=== PATIENT | male | born 1995 | race Hispanic/Latino ===

== ENCOUNTER 2016-07-27 11:55 | Emergency (ER) | payer SELFPAY ==
[2016-07-27] MEDS ORDERED: KETOROLAC TROMETHAMINE 60 MG/2 ML VIAL IM ONE ×2 (12:45→13:33)
[2016-07-27] MEDS ORDERED: ONDANSETRON 4 MG TAB.RAPDIS PO ONE (12:45)
[2016-07-27 13:30] LABS: Urine Bilirubin 1 mg/dl (NEGATIVE); Urine Blood Negative /ul (NEGATIVE); Urine Ketone 15 mg/dL (NEGATIVE); Urine Nitrite Negative (NEGATIVE); Urine Protein 15 mg/dL (NEGATIVE); Urine Specific Gravity >=1.030 SP.GR. (1.005-1.030); Urine Urobilinogen Normal (NORMAL)
[2016-07-27] MEDS ORDERED: NORMAL SALINE 1,000 ML IV ONE (13:32)
[2016-07-27 13:33] LABS: Urine Appearance Slightly Cloudy; Urine Bacteria 1+; Urine Color Yellow; Urine Mucus Many - 3+; Urine RBC 0-5 /hpf (0-5); Urine WBC TRACE /hpf (0-5)
[2016-07-27] MEDS ORDERED: ONDANSETRON 4 MG TAB.RAPDIS ONE ×2 (13:33→13:37)
[2016-07-27 13:52] LABS: Cocaine Ur Negative (NEGATIVE); Urine Barbiturate Negative (NEGATIVE); Urine Opiates Negative (NEGATIVE); Urine PCP Negative (NEGATIVE)
[2016-07-27 13:56] LABS: Urine Benzodiazepines Positive (NEGATIVE); Urine THC Positive (NEGATIVE)
[2016-07-27 13:56] LABS: Hematocrit 44.8 % (42.0-52.0); Hemoglobin 15.6 gm/dL (13.5-18.0); Mean Cell Volume 83.6 fl (78-100); Mean Corpuscular Hemoglobin 29.1 pg (27-31); Mean Corpuscular Hgb Conc 34.8 g/dl (32-36); Mean Platelet Volume 8.9 fl (6.0-9.5); Neutrophil # 8.2 K/mm3 (1.3-6.0); Neutrophil % 69.8 % (42-75.0); Platelet Count 397 K/mm3 (150-450); Red Blood Count 5.36 M/mm3 (4.7-6.0); Red Cell Distribution Width 12.1 % (11.5-14.0); White Blood Count 11.7 K/mm3 (4.0-10.5)
--- NOTE | 2016-07-27 13:59 | ERNOTE ---
Headache ER HPI - Narrative Date of Service: 07/27/16 - General Presenting Symptoms: headache, "migraine" Time Seen by Provider: 07/27/16 12:43 Source: patient Exam Limitations: no limitations - Immun/Allergies/Home Medications Immunizations: IMMUNIZATION HX Immunizations Up to Date Yes History of Influenza Vaccine Yes Hx Pneumococcal Vaccination Yes Allergies/Adverse Reactions: Allergies Penicillins Allergy (Verified 07/27/16 12:12) Home Medications: HOME MEDICATIONS NK [No Home Medication] 02/24/16 [Last Taken Unknown] - Pain Pain Score: 6 - History of Present Illness Narrative: 21-year-old male presents to the emergency room for headache at the base of the back of his head and in the front of his eyes and low back pain. Patient states that normally he takes ibuprofen says that he has not been able to help him at this time. He states he has had a headache for 2 days Date (Duration): 07/27/16 Timing of Headache: gradual Context Headache: Present: new onset. Absent: tick bite, sick contact, meningitis exposure, recent head injury < 24 hrs ago Quality: Present: achy Headache frequency: Present: no recent headache Modifying Factors - (Improves): Reports: rest Modifying Factors - (Worsens): Reports: movement, exposure to light Associated Symptoms: Reports: nausea, vomiting, neck pain/stiffness. Denies: fever/chills, sweating, nasal congestion, nasal drainage, facial pain, fatigue, numbness/tingling, vision changes, confusion, light-headedness, dizziness, loss of consciousness, seizures, speech problems Exacerbated by:: Reports: light, noise Review of Systems - Review of Systems Constitutional: Present: See HPI EYE: Present: see HPI ENT: Present: no symptoms reported Respiratory: Present: no symptoms reported Cardiology: Present: no symptoms reported Gastrointestinal/Abdominal: Present: no symptoms reported Genitourinary: Present: no symptoms reported Musculoskeletal: Present: See HPI, muscle stiffness, neck pain Skin: Present: no symptoms reported Neurological: Present: See HPI Endocrine: Present: no symptoms reported Hematologic/Lymphatic: Present: no symptoms reported Psych: Present: no symptoms reported - Narrative Narrative: patient has a history of self harm - Patient's Past Medical History Patient History - Medical: Alcohol Abuse, Headache, Kidney stone Patient History - Cardiac/Respiratory: No pertinent hx Patient History - Cancer: No Hx of Cancer Patient History - Surgical Procedures: Other Patient History - Other: None - Social History Living Situations: home Abuse History: Hx of Substance Use, Hx -Substance Use Tx Psych History: Psychiatric Hx, Hx of Suicide Attempt Smoking Status: Current every day smoker Alcohol Use: none Drug Use: none - Immunizations Immunizations Up to Date: Yes Hx Pneumococcal Vaccination: Yes History of Influenza Vaccine: Yes Physical Exam - Physical Exam Narrative: patient has pain to his occipital area with some tenderness when he puts his chin to his chest. patient is able to move head side to side and ear to shoulder bilaterally with out pain or resistance. patient mucous membranes are dry. left submandibular lymphnode felt during palpation. It is painless. throat is not red or swollen. General Appearance: Present: wd/wn, alert, no apparent distress Eye Exam: Normal inspection: bilateral, Photophobia: bilateral Ears, Nose, Throat: Present: normal except -, normal pharynx, dry mucous membranes. Absent: sinus pain/drainage, pharyngeal swelling Neck: Present: normal inspection, supple, limited range of motion, lymphadenopathy (L), tender posterior midline, other. Absent: carotid bruit, tender lateral Respiratory: Present: no respiratory distress, normal breath sounds, no accessory muscle use, lungs clear Cardiovascular/Chest: Present: regular rate, rhythm, no murmur, normal peripheral pulses Gastrointestinal/Abdominal: Present: normal bowel sounds, nontender, soft Back Exam: Present: CVA tenderness (R), CVA tenderness (L) Extremity Exam: Present: normal inspection, normal range of motion, no edema Neurological Exam: Present: alert, oriented, normal mood/affect, no motor/ sensory deficits, groundman II-XII nml as tested, normal cerebellar test. Absent: facial droop Skin Exam: Present: normal color, warm/dry. Absent: diaphoresis, cyanosis, jaundice, skin rash ED Progress - Results and Orders Patient's Lab Results:: I have reviewed the patient's lab results. Results and Orders: patient admitted to street drugs. - Vital Signs Patient's Vital Signs:: I have reviewed the patient's vital signs. Vital Signs: Vital Signs 07/27/16 07/27/16 07/27/16 12:08 12:17 13:12 Temperature 36.4 C L Pulse Rate 86 92 79 Respiratory 16 12 Rate Blood Pressure 126/76 120/82 116/80 O2 Sat by Pulse 98 100 97 Oximetry - Progress/Reassessment Chief Complaint: Headache Progress:: Pain free at discharge Plan - Plan Plan: patient counseled on his drug use and encouraged under rehabilitation program. Patient is able to move her neck more freely now after medications have helped. Patient states that he feels better and wants to go home. Departure Clinical Impression: Tension headache - Departure Disposition: Home self-care Condition: Stable Instructions: Tension Headache, [id number], Stimulant Use Disorder- Amphetamines, Substance Abuse Testing, Finding Treatment for Addiction, Form - Excuse from Work, School, or Physical Activity Additional Instructions: He make him take any [id number] pain medications as needed for pain. Please avoid taking any medications that are not yours or illegal drug use at this time. I would highly suggest a treatment facility or seek help for drug use/ abuse or addiction at this time.
[2016-07-27 14:12] LABS: Anion Gap 12.9 mmol/L (6.8-13.8); BUN/Creatinine Ratio 12.7 (9.0-21.6); Bilirubin, Total 0.5 mg/dL (0.0-1.1); Ca. Corrected For Albumin 8.8 mg/dL (8.4-10.2); Calcium * 9.1 mg/dL (7.9-10.9); Carbon Dioxide 28.6 mmol/L (24-32.6); Potassium 4.5 mmol/L (3.4-4.6); Total Protein 7.9 gm/dL (6.2-8.2)
[2016-07-27 15:02] VITALS: BP 112/64
== END 2016-07-27 15:28 | disposition home or self-care (01) ==
LOC: ER 11:55
DX: G44.209 Tension-type headache, unspecified, not intractable (principal); F17.200 Nicotine dependence, unspecified, uncomplicated; Z87.440 Personal history of urinary (tract) infections

== ENCOUNTER 2016-10-24 08:39 | Emergency (ER) | payer OTHER ==
[2016-10-24 09:08] VITALS: BP 130/79
[2016-10-24] MEDS ORDERED: LIDOCAINE HCL 20 ML VIAL ONE (09:32)
--- NOTE | 2016-10-24 09:34 | ERNOTE ---
ER Male HPI Stated Complaint: STD ER Male: penile discharge Time Seen by Provider: 10/24/16 09:24 Source: patient Immunizations: IMMUNIZATION HX Immunizations Up to Date Yes History of Influenza Vaccine No Hx Pneumococcal Vaccination No Allergies/Adverse Reactions: Allergies Penicillins Allergy (Verified 10/24/16 09:09) Home Medications: HOME MEDICATIONS Doxycycline Monohydrate 100 mg PO BID #20 tablet 10/24/16 [Last Taken Unknown] - History of Present Illness Narrative: Patient feels that he is contracted chlamydia once again. Patient is to having had intercourse and feels as though he had an STD from a woman that he agrees to contact. He complains of penile discharge and burning on urination similar to the previous time. Timing: Present: constant Quality: Present: mild Onset Location: Present: urethral Radiation: Present: none Activities at Onset: Present: sexual activity Prior Abdominal Problems: Present: similar symptoms Sexual [place] History: Present: multiple partners Modifying Factors - (Worsens): Present: urinating Review of Systems - Review of Systems Constitutional: Present: See HPI EYE: Present: no symptoms reported ENT: Present: no symptoms reported Respiratory: Present: no symptoms reported Cardiology: Present: no symptoms reported Gastrointestinal/Abdominal: Present: no symptoms reported Genitourinary: Present: See HPI Musculoskeletal: Present: no symptoms reported Skin: Present: no symptoms reported Neurological: Present: no symptoms reported Endocrine: Present: no symptoms reported Hematologic/Lymphatic: Present: no symptoms reported Psych: Present: no symptoms reported - Patient's Past Medical History Patient History - Medical: Alcohol Abuse, Headache, Kidney stone, Other Patient History - Cardiac/Respiratory: No pertinent hx Patient History - Cancer: No Hx of Cancer Patient History - Surgical Procedures: Other, Hernia Repair Patient History - Other: None - Social History Living Situations: alone Abuse History: Hx of Substance Use, Hx -Substance Use Tx Psych History: Psychiatric Hx, Hx of Suicide Attempt Smoking Status: Current every day smoker Have you smoked in the past 12 months: Yes Do you dip or chew tobacco: No Alcohol Use: sober Drug Use: marijuana, meth - Immunizations Immunizations Up to Date: Yes Hx Pneumococcal Vaccination: No History of Influenza Vaccine: No Physical Exam - Physical Exam General Appearance: Present: wd/wn, alert, no apparent distress Eye Exam: Normal inspection: bilateral, PERRL: bilateral Ears, Nose, Throat: Present: normal ENT inspection, H, normal pharynx Neck: Present: normal inspection, nontender Respiratory: Present: no respiratory distress, normal breath sounds, no accessory muscle use, chest nontender, lungs clear Cardiovascular/Chest: Present: regular rate, rhythm, no murmur, normal peripheral pulses Gastrointestinal/Abdominal: Present: normal bowel sounds, nontender, nondistended, soft, no organomegaly Rectal Exam: Present: deferred Back Exam: Present: normal inspection, normal range of motion Extremity Exam: Present: normal inspection, non-tender, no edema, normal range of motion Neurological Exam: Present: alert, oriented, normal mood/affect Skin Exam: Present: normal color, warm/dry Lymphatic Exam: Present: no adenopathy ED Progress - Vital Signs Patient's Vital Signs:: I have reviewed the patient's vital signs. Vital Signs: Vital Signs 10/24/16 09:04 Temperature 36.6 C Pulse Rate 85 Respiratory 14 Rate Blood Pressure 130/79 O2 Sat by Pulse 97 Oximetry - Progress/Reassessment Chief Complaint: Genitourinary Problem Plan - Plan Plan: We have obtained a urinalysis and we sent out for a GC/Chlamydia. Patient will be given 250 mg of Rocephin IM and will be started on doxycycline 100 mg twice a day as L cover both chlamydia and syphilis. Patient agrees to follow-up with his family physician, use a condom during sexual activity and contact the partner from which she possibly contracted the Chlamydia. Departure Clinical Impression: STD (sexually transmitted disease) - Departure Disposition: Home self-care Condition: Good Instructions: Sexually Transmitted Disease, [id number] Prescriptions: Doxycycline Monohydrate 100 mg PO BID #20 tablet
== END 2016-10-24 09:39 | disposition home or self-care (01) ==
LOC: ER 08:39
DX: A64 Unspecified sexually transmitted disease (principal); Z87.442 Personal history of urinary calculi; F17.200 Nicotine dependence, unspecified, uncomplicated